=== PATIENT | female | born 1960 | race Caucasian/White ===

== ENCOUNTER → 2016-07-05 | Outpatient (CLI) | payer BC ==
[~2016-07-05] MED LIST: CALC500C70 PO; METHIMAZOLE PO; MULT-506 PO
--- NOTE | 2016-07-05 10:38 | Discharge Instructions ---
Discharge Instructions Procedure Procedure Date: Jul 05, 2016. Reason for visit: Increased Size Thyroid Nodule. Discharge Discharge Date: Jul 05, 2016. Discharge Diagnosis: Thyroid nodule Instructions Activity Recommendations: No limitations Return to School/Work: no limitations Recommended Home Diet: Resume Previous Diet Allergies Coded Allergies: No Known Allergies (Unverified Allergy, ., 02/24/09) Jesse Combs Recommendations: Call your doctor if: * Temperature above 101 degrees * Pain not relieved by pain medicine ordered * There is increased drainage or redness from any incision * You have any unanswered questions or concerns. Your Doctors Instructions noted above were prepared by provider Xander Nash. Patient Signature Section: Patient Instructions Signature Page Chelsy Oneill Patient (or Guardian) Signature/Date: I have read and understand the instructions given to me by my caregivers. Caregiver/RN/Doctor Signature/Date: The above-named patient and/or guardian has received patient instructions on this date. + Original Patient Signature Page (only) stays with chart. Please make copy for patient.
--- NOTE | 2016-07-05 11:10 | DIAGNOSTIC IMAGING REPORT ---
ULTRASOUND-GUIDED RIGHT LOBE THYROID FINE-NEEDLE ASPIRATION BIOPSY CLINICAL HISTORY: Enlarging right lobe thyroid nodule COMPARISON STUDY: 06/12/2016 FINDINGS: A timeout was performed. The risks of the procedure were explained the patient. Informed consent was obtained. The patient was prepped in a sterile fashion. The skin was anesthetized 1% lidocaine. Under ultrasound guidance, 3 passes with 25-gauge needle were performed into the enlarging right lower pole thyroid nodule. Initial pathologic review indicates satisfactory material for diagnosis. IMPRESSION: Successful ultrasound-guided fine-needle aspiration biopsy of a right lobe thyroid nodule. Electronically signed by: Xander Nash M.D. 07/05/2016 11:08 AM
== END | disposition home or self-care (01) ==
LOC: C.ULTR 09:34
PROVIDERS: ATTEND Family Medicine
DX: E04.1 Nontoxic single thyroid nodule (principal)

== ENCOUNTER → 2017-06-06 | Outpatient (CLI) | payer BC ==
--- NOTE | 2017-06-07 07:53 | MAMMOGRAPHY REPORT ---
BILATERAL DIGITAL SCREENING MAMMOGRAM TOMOSYNTHESIS WITH CAD: 06/06/2017 CLINICAL HISTORY: Routine screening. Patient has no complaints. TECHNIQUE: Breast tomosynthesis in addition to standard 2D mammography was performed. Current study was also evaluated with a Computer Aided Detection (CAD) system. COMPARISON: Comparison is made to exams dated: 03/17/2016 mammogram, 03/03/2015 mammogram, 01/20/2014 ma mmogram, 01/16/2013 mammogram, 01/15/2012 mammogram, and 01/11/2011 mammogram - [facility] nter. BREAST COMPOSITION: The tissue of both breasts is heterogeneously dense, which may obscure small mas ses. FINDINGS: No suspicious masses, calcifications, or areas of architectural distortion are noted in ei ther breast. There has been no significant interval change compared to prior exams. IMPRESSION: ACR BI-RADS CATEGORY 1: NEGATIVE There is no mammographic evidence of malignancy. A 1 year screening mammogram is recommended. The pa tient will receive written notification of the results. Approximately 10% of breast cancers are not detected with mammography. A negative mammographic report should not delay biopsy if a clinically suggestive mass is present. Saida Chaney M.D. ah/:06/06/2017 16:00:33 Acute Care Clinical Nurse Specialist: Josephine MORA(Tim)(M), [facility] letter sent: Normal 1/2 BI-RADS Code: ACR BI-RADS Category 1: Negative
== END | disposition home or self-care (01) ==
LOC: C.MAMM 13:43
PROVIDERS: ATTEND Family Medicine
DX: Z12.31 Encounter for screening mammogram for malignant neoplasm of breast (principal)